=== PATIENT | female | born 1975 | race Caucasian/White ===

== ENCOUNTER 2021-01-13 12:02 | Emergency (ER) | payer BC ==
--- NOTE | 2021-01-13 14:34 | RAD REPORT ---
EXAM DESCRIPTION: Edi Arguelles And Petra (2 Views)01/13/2021 1:59 pm CLINICAL HISTORY: Cough COMPARISON: None FINDINGS: Lingular consolidation. Right lung appears clear. The heart is normal size IMPRESSION: Lingular consolidation consistent with pneumonia. This should be followed until it is cl ear to exclude a post obstructive process/underlying mass
[2021-01-13] MEDS ORDERED: NA CHLORIDE 0.9% 1,000 ML ONE (16:23)
[2021-01-13 16:29] LABS: Absolute Lymphocytes (CBC) 0.4 K/uL (0.7-4.9); Basophils % 0.8 % (0-1.3); Hematocrit 41.8 % (36.0-45.0); Lymphocytes % 21.6 % (15.3-44.8); MPV 7.6 fL (7.6-11.3)
[2021-01-13] MEDS ORDERED: HYDROCODONE/CHLORPHEN 5 ML/OSYR ONE (16:56)
[2021-01-13] MEDS ORDERED: FAMOTIDINE 20 MG/2 ML VIAL IV ONE (16:56)
[2021-01-13] MEDS ORDERED: ONDANSETRON 4 MG/2 ML VIAL ONE (16:56)
[2021-01-13 17:26] LABS: ALT/SGPT 88 U/L (12-78); AST/SGOT 113 U/L (15-37); Albumin 3.2 g/dL (3.4-5.0); Alkaline Phosphatase 80 U/L (45-117); BUN Blood Urea Nitrogen 10 mg/dL (7-18); Bicarbonate 25 mmol/L (21-32); Bilirubin Direct 0.3 mg/dL (0-0.2); Bilirubin Total 0.5 mg/dL (0.2-1.0); Glucose Level 93 mg/dL (74-106); Protein, Total 6.9 g/dL (6.4-8.2); Sodium Level 137 mmol/L (136-145)
[2021-01-13 17:52] LABS: Blood Morphology Comment NOT SEEN (NOT SEEN); Platelet Estimate DECR; White Blood Cell Scan OK (OK)
--- NOTE | 2021-01-13 18:05 | ER ---
Nurse's Notes [facility] Name: Janet Smith Age: 45 yrs Sex: Female : 1975 Arrival Date: 01/13/2021 Time: 12:11 Bed 10 Private MD: Diagnosis: Pneumonia due to SARS-associated coronavirus Presentation: 01/13 12:13 Chief complaint: Patient states: tested positive 9 days, felt like she couldn't breath iw , was tachycardiac and had 101 temp , having some mild chest pain, took mucinex at 4 am and ibuprofen last night , also has diarrhea, mouth is dry. Coronavirus screen: Client reports previous positive COVID test result. Ebola Screen: Patient negative for fever greater than or equal to 101.5 degrees Fahrenheit, and additional compatible Ebola Virus Disease symptoms Patient denies exposure to infectious person. Patient denies travel to an Ebola-affected area in the 21 days before illness onset. No symptoms or risks identified at this time. Initial Sepsis Screen: Does the patient meet any 2 criteria? Does the patient have a suspected source of infection? No. Patient's initial sepsis screen is negative. Risk Assessment: Do you want to hurt yourself or someone else? Patient reports no desire to harm self or others. Onset of symptoms was January 13, 2021. 12:13 Acuity: PAUL 3 iw 12:13 Method Of Arrival: EMS: [facility] iw FIELD MARKETING COORDINATOR: 12:36 LMP N/A - Hysterectomy iw Historical: - Allergies: 12:14 No Known Allergies; iw - Home Meds: 12:35 None [Active]; iw - PMHx: 12:35 None; iw - PSHx: 12:35 section; hysterectomy; iw - Immunization history:: Client reports having NOT received the Covid vaccine. - Social history:: Smoking status: Patient denies any tobacco usage or history of. Screenin:45 Abuse screen: Denies threats or abuse. Denies injuries from another. Nutritional iw screening: No deficits noted. Tuberculosis screening: No symptoms or risk factors identified. Assessment: 18:45 Reassessment: Patient appears in no apparent distress at this time. Patient and/or iw family updated on plan of care and expected duration. Pain level reassessed. Vital Signs: 12:34 BP 101 / 80; Pulse 108; Resp 18; Temp 99.4; Pulse Ox 100% on R/A; Weight 85.73 kg; iw Height 5 ft. 4 in. (162.56 cm); 12:34 Body Mass Index 32.44 (85.73 kg, 162.56 cm) iw ED Course: 12:11 Patient arrived in ED. mr 12:14 Triage completed. iw 12:14 Arm band placed on. iw 13:54 X-ray completed. Patient tolerated procedure well. Patient moved back from radiology. mh1 13:54 Patient taken to lobby, via wheelchair. mh1 13:59 Chest Pa And Lat (2 Views) In Process Unspecified. EDMS 14:35 Stefano Pratt, EDNA is PHCP. pm1 14:35 Theodore Burch MD is Attending Physician. pm1 15:28 Marla Mchugh, RN is Primary Nurse. iw 15:55 Inserted saline lock: 20 gauge in left antecubital area, using aseptic technique. iw 18:45 No provider procedures requiring assistance completed. IV discontinued, intact, iw bleeding controlled, No redness/swelling at site. Pressure dressing applied. Administered Medications: 16:20 Drug: Zofran (Ondansetron) 4 mg Route: IVP; Site: left antecubital; iw 17:00 Follow up: Response: No adverse reaction iw 16:22 Drug: NS 0.9% 1000 ml Route: IV; Rate: 1000 ml; Site: left antecubital; iw 17:20 Follow up: IV Status: Completed infusion iw 16:50 Drug: Pepcid (famotidine) 20 mg Route: IVP; Site: left antecubital; iw 17:00 Follow up: Response: No adverse reaction iw 16:50 Drug: Tussionex Pennkinetic ER (chlorpheniramine-hydrocodone) Suspension 5 ml Route: PO;iw 17:20 Follow up: Response: No adverse reaction iw 18:44 Drug: Ibuprofen 600 mg Route: PO; iw 19:10 Follow up: Response: No adverse reaction iw 18:45 Drug: Potassium Chloride 40 mEq Route: PO; iw 19:00 Follow up: Response: No adverse reaction iw Outcome: 18:04 Discharge ordered by . pm1 19:05 Patient left the ED. iw Signatures: Dispatcher [employer] [facility] Justyna Younger Henry Vasquezha [facility] Marla Mchugh, RN RN Stefano Pratt NP DEVOPS CONSULTANT pm1 Corrections: (The following items were deleted from the chart) 12:35 12:13 Chief complaint: Patient states: tested positive 9 days, felt like she couldn't iw breath , was tachycardiac and had 101 temp , having some mild chest pain, took mucinex at 4 am and ibuprofen last night iw 12: 12:34 Resp 18bpm; Temp 99.4F; iw iw
--- NOTE | 2021-01-13 18:05 | EDPHYS ---
Physician Documentation [facility] Name: Janet Smith Age: 45 yrs Sex: Female : 1975 Arrival Date: 01/13/2021 Time: 12:11 Bed 10 Private MD: ED Physician Theodore Burch HPI: 01/13 14:50 This 45 yrs old Female presents to ER via EMS with complaints of COVID+, pm1 Shortness Of Breath. 14:50 The patient or guardian reports cough, shortness of breath. Onset: The symptoms/episode pm1 began/occurred 10 day(s) ago, diagnosed with covid 9 days ago. Severity of symptoms: in the emergency department the symptoms are actually worse. Modifying factors: The symptoms are alleviated by nothing, the symptoms are aggravated by nothing. Associated signs and symptoms: Pertinent positives: fever, decreased appetite. The patient has not experienced similar symptoms in the past. The patient has not recently seen a physician. 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 - Social history:: Smoking status: Patient denies any tobacco usage or history of. ROS: 14:50 Eyes: Negative for injury, pain, redness, and discharge, ENT: Negative for injury, pm1 pain, and discharge, Neck: Negative for injury, pain, and swelling. 14:50 Abdomen/GI: Negative for abdominal pain, nausea, vomiting, diarrhea, and constipation, Back: Negative for injury and pain, MS/Extremity: Negative for injury and deformity, Skin: Negative for injury, rash, and discoloration. 14:50 Constitutional: Positive for body aches, chills, fever, poor PO intake. 14:50 Cardiovascular: Positive for chest pain, with cough, Negative for edema, orthopnea. 14:50 Respiratory: Positive for cough, shortness of breath. 14:50 All other systems are negative. Exam: 14:50 Constitutional: This is a well developed, well nourished patient who is awake, alert, pm1 and in no acute distress. Head/Face: Normocephalic, atraumatic. 14:50 Neck: Trachea midline, no thyromegaly or masses palpated, and no cervical lymphadenopathy. Supple, full range of motion without nuchal rigidity, or vertebral point tenderness. No Meningismus. 14:50 Back: No spinal tenderness. No costovertebral tenderness. Full range of motion. Skin: Warm, dry with normal turgor. Normal color with no rashes, no lesions, and no evidence of cellulitis. MS/ Extremity: Pulses equal, no cyanosis. Neurovascular intact. Full, normal range of motion. 14:50 Eyes: Exam is negative for acute changes, Extraocular movements: no acute changes, Conjunctiva: normal, no injection, no acute changes. 14:50 ENT: Exam is negative for acute changes, Mouth: Lips: normal, Oral mucosa: normal, pink and intact, moist. 14:50 Cardiovascular: Exam negative for acute changes, Rate: tachycardic, Rhythm: regular, Pulses: no pulse deficits are appreciated, Edema: is not appreciated. 14:50 Respiratory: Exam negative for acute changes, respiratory distress, shortness of breath, Breath sounds: are clear throughout. 14:50 Abdomen/GI: Inspection: abdomen appears normal, Palpation: abdomen is soft and non-tender, in all quadrants. 14:50 Neuro: Exam negative for acute changes, Orientation: is normal, Mentation: is normal, Motor: is normal, moves all fours. Vital Signs: 12:34 BP 101 / 80; Pulse 108; Resp 18; Temp 99.4; Pulse Ox 100% on R/A; Weight 85.73 kg; iw Height 5 ft. 4 in. (162.56 cm); 12:34 Body Mass Index 32.44 (85.73 kg, 162.56 cm) iw MDM: 14:37 Patient medically screened. [facility] 14:49 Counseling: I had a detailed discussion with the patient and/or guardian regarding: pm1 radiology results. 18:03 Data reviewed: vital signs. Data interpreted: Pulse oximetry: on room air is 100 %. pm1 Interpretation: normal. 18:17 ED course: REVENUE TAX SPECIALIST aware reviewed. pm1 01/13 14:49 Order name: CBC with Diff; Complete Time: 18:02 pm1 01/13 14:49 Order name: BMP; Complete Time: 18:02 pm1 01/13 13:48 Order name: Chest Pa And Lat (2 Views); Complete Time: 14:35 EDMS 01/13 14:49 Order name: LFT's; Complete Time: 18:02 pm1 01/13 17:52 Order name: CBC Smear Scan; Complete Time: 18:02 EDMS 01/13 16:19 Order name: Labs - recollect needed: recollect green top; Complete Time: 16:50 bd Administered Medications: 16:20 Drug: Zofran (Ondansetron) 4 mg Route: IVP; Site: left antecubital; iw 17:00 Follow up: Response: No adverse reaction iw 16:22 Drug: NS 0.9% 1000 ml Route: IV; Rate: 1000 ml; Site: left antecubital; iw 17:20 Follow up: IV Status: Completed infusion iw 16:50 Drug: Pepcid (famotidine) 20 mg Route: IVP; Site: left antecubital; iw 17:00 Follow up: Response: No adverse reaction iw 16:50 Drug: Tussionex Pennkinetic ER (chlorpheniramine-hydrocodone) Suspension 5 ml Route: PO;iw 17:20 Follow up: Response: No adverse reaction iw 18:44 Drug: Ibuprofen 600 mg Route: PO; iw 19:10 Follow up: Response: No adverse reaction iw 18:45 Drug: Potassium Chloride 40 mEq Route: PO; iw 19:00 Follow up: Response: No adverse reaction iw Disposition: 01/14 07:06 Co-signature as Attending Physician, Theodore Burch MD I agree with the assessment and anai plan of care. Disposition Summary: 01/13/21 18:04 Discharge Ordered Location: Home pm1 Problem: new pm1 Symptoms: have improved pm1 Condition: Stable pm1 Diagnosis - Pneumonia due to SARS-associated coronavirus pm1 Followup: pm1 - With: Emergency Department - When: As needed - Reason: Worsening of condition Followup: pm1 - With: Private Physician - When: 2 - 3 days - Reason: Recheck today's complaints, Continuance of care, Re-evaluation by your physician Discharge Instructions: - Discharge Summary Sheet pm1 - COVID-19 pm1 - Things to Know about the COVID-19 Pandemic - [facility] pm1 - 10 Things You Can Do to Manage Your COVID-19 Symptoms at Home - [facility] pm1 - Symptoms of Coronavirus - [facility] pm1 - COVID-19: Quarantine vs. Isolation - [facility] pm1 Forms: - Medication Reconciliation Form pm1 - Thank You Letter pm1 - Antibiotic Education pm1 - Prescription Opioid Use pm1 - Work release form Prescriptions: - Ventolin HFA 90 mcg/actuation Inhalation HFA aerosol inhaler - inhale 2 puff by INHALATION route every 4-6 hours As needed; 1 Inhaler; pm1 Refills: 0, Product Selection Permitted - ondansetron 4 mg Oral tablet,disintegrating - place 1 tablet by TRANSLINGUAL route every 8 hours As needed; 15 tablet; pm1 Refills: 0, Product Selection Permitted - Guaifenesin AC 10-100 mg/5 mL Oral Liquid - take 10 milliliters by ORAL route every 4 hours As needed; 240 milliliter; pm1 Refills: 0, Product Selection Permitted Signatures: Dispatcher [employer] EDMS Bethany Bui Corey, MD MD cha Williams, Irene, MATT RN iw Stefano Pratt, EDNA BRAN MIXER pm1 Corrections: (The following items were deleted from the chart) 01/13 13:48 12:37 Chest Single View+[email or web address] ordered. EDMS EDMS
[2021-01-13] MEDS ORDERED: POTASSIUM CL SA 10 MEQ TAB PO ONE (18:53)
[2021-01-13] MEDS ORDERED: IBUPROFEN 200 MG TAB PO ONE (18:53)
[2021-01-13 19:24] VITALS: BP 101/80; TEMP 99.4; O2SAT 100
== END 2021-01-13 19:05 | disposition home or self-care (01) ==
LOC: ER 12:02
DX: U07.1 COVID-19 (principal); J12.82 Pneumonia due to coronavirus disease 2019
CPT/HCPCS: 85025; 80048; 36415; 80076; 71046; J7030; J2405; 96361; 96374; 96375; 99284